=== PATIENT | male | born 1980 | race Asian ===

== ENCOUNTER 2016-11-15 21:32 | Emergency (ER) | payer OTHER ==
[~2016-11-15] VITALS: Ht 180.3 cm; Wt 95.4 kg
[2016-11-15 21:48] VITALS: Ht 180.3 cm; Wt 95.4 kg
--- NOTE | 2016-11-15 22:20 | ERA ---
ER Documentation Chief Complaint Date/Time DATE: 11/15/16 TIME: 22:20 Chief Complaint LT MIDDLE FINGER SWELLING. UNABLE TO TAKE RING OFF +BP HIGH HPI The patient is a 36-year-old male, presenting to the ER because of left middle finger swollen after he put on the ring for more than 12 hours and unable to remove it. He becomes very anxious and agitated. He has history of high blood pressure but never took any medication and has been doing cocaine today. He denies headache, dizziness, neck pain, chest pain, dyspnea, abdominal pain, vomiting with dysuria, diarrhea. He smokes and drinks and does illegal drug Past medical history: Hypertension, medical noncompliance Past surgical history: None ROS All systems reviewed and are negative except as per history of present illness. Medications Home Meds No Active Prescriptions or Reported Meds Allergies Allergies: Coded Allergies: No Known Allergy (Unverified , 11/16/16) PMhx/Soc Medical and Surgical Hx: pt denies Medical Hx, pt denies Surgical Hx History of Surgery: No Anesthesia Reaction: No Hx Neurological Disorder: No Hx Respiratory Disorders: No Hx Cardiac Disorders: No Hx Alcohol Use: Yes (Occasional) Hx Substance Use: Yes (Cocaina Just today) Hx Tobacco Use: No Smoking Status: Never smoker Physical Exam Vitals Vital Signs Date Time Temp Pulse Resp B/P Pulse Ox O2 Delivery O2 Flow Rate FiO2 11/15/16 21:48 97.0 80 20 215/142 100 Physical Exam Const: No acute distress. Head: Atraumatic. Eyes: Normal Conjunctiva. ENT: Normal External Ears, Nose and Mouth. Neck: Full range of motion. No meningismus. Resp: Clear to auscultation bilaterally. Cardio: Regular rate and rhythm. Abd: Soft, non distended, normal bowel sounds, non tender. Skin: No petechiae or rashes. Back: No midline or flank tenderness. Ext: Left medial finger is edematous with a ring, no discoloration, no ecchymosis Neur: Awake and alert. No focal deficit Psych: Normal Mood and Affect. Results 24 hrs Current Medications Medications (Trade) Dose Ordered Sig/Faith Route PRN Reason Start Time Stop Time Status Last Admin Dose Admin Clonidine (Catapres) 0.2 mg ONCE ONCE PO 11/15/16 22:30 11/15/16 22:31 DC 11/15/16 22:32 Lorazepam (Ativan) 1 mg ONCE ONCE PO 11/15/16 22:30 11/15/16 22:31 DC 11/15/16 22:32 Clonidine (Catapres) 0.2 mg ONCE ONCE PO 11/16/16 03:00 11/16/16 03:01 Amlodipine Besylate (Norvasc) 10 mg ONCE ONCE PO 11/16/16 03:00 11/16/16 03:01 Procedures/[facility] MEDICAL MAKING DECISION: The patient is a 36-year-old male, presenting with a tight ring on the left middle finger and acute accelerated hypertension, acute anxiety. He was very reluctant to take medication, however he was treated with Ativan 1 mg p.o. for anxiety, clonidine 0.2 mg 2 and Norvasc 10 mg p.o. for acute excellent hypertension with good response We were able to cut the ring but unable to spread the ring to remove it because of it thickness and diamonds and premium quality. It relieved the pressure and pain. He is stable to follow-up with a jewler with a proper tools to remove it. Departure Diagnosis: Primary Impression: Tight ring on finger Additional Impression: HTN (hypertension) Condition: Good Comments He was discharged with Norvasc 10 mg daily I discussed the findings with the patient. I advised the patient to follow-up with the jewler to remove it, and return if any concern. MAY BUSTOS MD Nov 15, 2016 22:20
[2016-11-15] MEDS ORDERED: LORAZEPAM 1 MG TAB PO ONE (22:30)
[2016-11-16 02:46] VITALS: BP 175/120
[2016-11-16] MEDS ORDERED: AMLO-218 PO (02:49)
[2016-11-16] MEDS ORDERED: AMLODIPINE 10 MG TAB PO ONE (03:00)
== END 2016-11-16 08:06 | disposition home or self-care (01) ==
LOC: FTE 21:32 → E/R 11-16 08:06
DX: S60.443A External constriction of left middle finger, initial encounter (principal); I10 Essential (primary) hypertension; W49.04XA Ring or other jewelry causing external constriction, initial encounter; Y92.9 Unspecified place or not applicable
CPT/HCPCS: Z7610 ×4; 99283

== ENCOUNTER 2018-01-24 21:18 | Emergency (ER) | END 2018-01-25 01:40 | disposition home or self-care (01) ==